=== PATIENT | female | born 1945 | race Caucasian/White ===

== ENCOUNTER 2017-02-12 09:43 | Emergency (ER) | payer OTHER ==
[~2017-02-12] VITALS: Ht 157.5 cm; Wt 64.4 kg
[~2017-02-12 09:43] MED LIST: CEPACOL SORE TH1 LO4 MM; CLA10 PO; CLARITIN10 MG PO; COL100 PO; COZ50 PO; COZAAR50 MG PO; FERROUS SULFAT325 M2 PO; GOOD SENSE ASPI81 M3 PO; LEVAQUIN750 MG PO; LEVOTHYROXIN0.025 M2 PO; MAC100 PO; MEDDP PO; METFORMIN ER500 M1 PO; METFORMIN HCL500 MG PO; METOPROLOL25 MG PO; MUCINEX600 MG PO; NAPROSYN375 MG PO; OMEPRAZOLE20 M2 PO; PROAIR HFA0.09 MG/A1; ROBITUSSIN COU118 ML PO; SIMVASTATIN40 M1 PO; SIMVASTATIN40 MG PO; SING10 PO; TRE400 PO; TYL325 PO; VITAMIN C500 M4 PO; ZOCOR40 MG PO
[2017-02-12 11:33] VITALS: BP 140/54
== END 2017-02-12 11:47 | disposition home or self-care (01) ==
LOC: ED 09:43
DX: J98.01 Acute bronchospasm (principal); I10 Essential (primary) hypertension; E11.9 Type 2 diabetes mellitus without complications; E78.00 Pure hypercholesterolemia, unspecified; M54.9 Dorsalgia, unspecified; R07.89 Other chest pain
CPT/HCPCS: J7512; J7613; J7644

== ENCOUNTER 2017-07-15 12:58 | Emergency (ER) | payer OTHER ==
[~2017-07-15] VITALS: Ht 149.9 cm; Wt 64.4 kg
[2017-07-15 13:24] VITALS: Ht 149.9 cm; Wt 64.4 kg
[2017-07-15 15:06] LABS: BASOPHIL % 0.2 % (0-2); PLATELET COUNT 312 x10^3mcL (130-400)
[2017-07-15 15:08] LABS: RED CELL DISTRIBUTION WIDTH 16.3 % (11.5-14.5)
[2017-07-15 15:13] LABS: CALCIUM 9.3 mg/dL (8.5-10.1); CARBON DIOXIDE 19.9 mmol/L (21-32); CHLORIDE SERUM 107 mmol/L (98-107); CREATININE SERUM 1.8 mg/dL (0.6-1.0); GLUCOSE SERUM 93 mg/dL (74-106); POTASSIUM SERUM 4.6 mmol/L (3.5-5.1); SODIUM SERUM 141 mmol/L (136-145)
[2017-07-15 15:30] LABS: ALKALINE PHOSPHATASE 96 U/L (46-116); ALT/SGPT 21 U/L (14-59); AST/SGOT 15 U/L (15-37); BILIRUBIN TOTAL 0.31 mg/dL (0.20-1.00); LIPASE 593 IU/L (73-393); TOTAL PROTEIN, SERUM 8.2 g/dL (6.4-8.2)
[2017-07-15 16:03] VITALS: BP 140/66
== END 2017-07-15 16:03 | disposition home or self-care (01) ==
LOC: ED 12:58
PROVIDERS: Emergency Medicine
DX: E11.22 Type 2 diabetes mellitus with diabetic chronic kidney disease (principal); I12.9 Hypertensive chronic kidney disease with stage 1 through stage 4 chronic kidney disease, or unspecified chronic kidney disease; N18.9 Chronic kidney disease, unspecified; E03.9 Hypothyroidism, unspecified
CPT/HCPCS: J2405; Q0092

== ENCOUNTER 2017-10-21 07:43 | Emergency (ER) | payer OTHER ==
[~2017-10-21] VITALS: Ht 127 cm; Wt 64.4 kg
[2017-10-21 07:56] VITALS: Ht 127 cm; Wt 64.4 kg
[2017-10-21 08:41] LABS: BASOPHIL % 0.6 % (0-2); PLATELET COUNT 271 x10^3mcL (130-400)
[2017-10-21 08:53] LABS: CALCIUM 8.9 mg/dL (8.5-10.1); CARBON DIOXIDE 22.1 mmol/L (21-32); CHLORIDE SERUM 110 mmol/L (98-107); CREATININE SERUM 1.9 mg/dL (0.6-1.0); GLUCOSE SERUM 91 mg/dL (74-106); POTASSIUM SERUM 4.7 mmol/L (3.5-5.1); SODIUM SERUM 144 mmol/L (136-145)
[2017-10-21 08:55] LABS: ALBUMIN 3.7 g/dL (3.4-5.0); ALKALINE PHOSPHATASE 85 U/L (46-116); ALT/SGPT 18 U/L (14-59); AST/SGOT 11 U/L (15-37); LIPASE 316 IU/L (73-393); TOTAL PROTEIN, SERUM 7.2 g/dL (6.4-8.2)
[2017-10-21 09:02] LABS: RED CELL DISTRIBUTION WIDTH 15.6 % (11.5-14.5)
[2017-10-21 09:54] VITALS: BP 119/66
== END 2017-10-21 09:55 | disposition home or self-care (01) ==
LOC: ED 07:43
PROVIDERS: Emergency Medicine
DX: J45.901 Unspecified asthma with (acute) exacerbation (principal); D64.9 Anemia, unspecified; N28.9 Disorder of kidney and ureter, unspecified; I10 Essential (primary) hypertension; E78.00 Pure hypercholesterolemia, unspecified; Z86.39 Personal history of other endocrine, nutritional and metabolic disease
CPT/HCPCS: 36415; 83880; J7512; J7613; J7644; Q0092

== ENCOUNTER 2019-01-20 23:18 | Emergency (ER) | payer OTHER ==
[~2019-01-20] VITALS: Ht 157.5 cm; Wt 56.7 kg
[2019-01-20 23:32] VITALS: Ht 157.5 cm; Wt 56.7 kg
[2019-01-21 01:43] LABS: BASOPHIL % 0.6 % (0-2); PLATELET COUNT 276 x10^3mcL (130-400)
[2019-01-21 01:46] LABS: RED CELL DISTRIBUTION WIDTH 16.5 % (11.5-14.5)
[2019-01-21 02:10] LABS: ALBUMIN 3.8 g/dL (3.4-5.0); ALKALINE PHOSPHATASE 109 U/L (46-116); ALT/SGPT 24 U/L (14-59); AST/SGOT 17 U/L (15-37); BILIRUBIN TOTAL 0.3 mg/dL (0.20-1.00); CALCIUM 8.6 mg/dL (8.5-10.1); CARBON DIOXIDE 15.9 mmol/L (21-32); CREATININE SERUM 2.2 mg/dL (0.6-1.0); GLUCOSE SERUM 102 mg/dL (74-106); TOTAL PROTEIN, SERUM 7.7 g/dL (6.4-8.2)
[2019-01-21 02:18] LABS: POTASSIUM SERUM 4.8 mmol/L (3.5-5.1); SODIUM SERUM 141 mmol/L (136-145)
[2019-01-21 02:19] LABS: CHLORIDE SERUM 109 mmol/L (98-107)
[2019-01-21 06:00] VITALS: BP 137/67
== END 2019-01-21 06:00 | disposition home or self-care (01) ==
LOC: ED 23:18
PROVIDERS: Emergency Medicine
DX: J06.9 Acute upper respiratory infection, unspecified (principal); J45.909 Unspecified asthma, uncomplicated; I10 Essential (primary) hypertension; E78.00 Pure hypercholesterolemia, unspecified; E03.9 Hypothyroidism, unspecified; M19.90 Unspecified osteoarthritis, unspecified site
CPT/HCPCS: 36415; J7613

== ENCOUNTER 2019-02-20 00:44 | Emergency (ER) | payer OTHER ==
[~2019-02-20] VITALS: Ht 157.5 cm; Wt 65.8 kg
[2019-02-20 00:51] VITALS: Ht 157.5 cm; Wt 65.8 kg
[2019-02-20 01:49] LABS: BASOPHIL % 0.6 % (0-2)
[2019-02-20 01:55] LABS: PLATELET COUNT 244 x10^3mcL (130-400); RED CELL DISTRIBUTION WIDTH 15.4 % (11.5-14.5)
[2019-02-20 02:48] LABS: UA SPECIFIC GRAVITY 1.015 (1.005-1.035); microscopic required? YES; urine erythrocyte NEGATIVE (NEGATIVE)
[2019-02-20 02:53] LABS: CARBON DIOXIDE 21.9 mmol/L (21-32); CHLORIDE SERUM 110 mmol/L (98-107); POTASSIUM SERUM 4.3 mmol/L (3.5-5.1); SODIUM SERUM 143 mmol/L (136-145)
[2019-02-20 02:54] LABS: GLUCOSE SERUM 92 mg/dL (74-106)
[2019-02-20 02:57] LABS: ALBUMIN 3.8 g/dL (3.4-5.0); ALT/SGPT 14 U/L (14-59); AST/SGOT 14 U/L (15-37); CALCIUM 8.7 mg/dL (8.5-10.1)
[2019-02-20 02:58] LABS: ALKALINE PHOSPHATASE 77 U/L (46-116); BILIRUBIN TOTAL 0.23 mg/dL (0.20-1.00); TOTAL PROTEIN, SERUM 7.4 g/dL (6.4-8.2)
[2019-02-20 03:57] VITALS: BP 118/65
== END 2019-02-20 03:57 | disposition home or self-care (01) ==
LOC: ED 00:44
PROVIDERS: Emergency Medicine
DX: M54.9 Dorsalgia, unspecified (principal); R10.13 Epigastric pain; R11.0 Nausea; J45.909 Unspecified asthma, uncomplicated; I10 Essential (primary) hypertension; E78.00 Pure hypercholesterolemia, unspecified; E03.9 Hypothyroidism, unspecified; Z98.890 Other specified postprocedural states
CPT/HCPCS: J1885; J2405

== ENCOUNTER 2019-06-29 16:49 | Emergency (ER) | payer OTHER ==
[~2019-06-29] VITALS: Ht 162.6 cm; Wt 68.0 kg
[2019-06-29 17:04] VITALS: Ht 162.6 cm; Wt 68.0 kg
[2019-06-29 18:07] LABS: PLATELET COUNT 267 x10^3mcL (130-400)
[2019-06-29 18:11] LABS: BASOPHIL % 2.4 % (0-2)
[2019-06-29 18:23] LABS: CALCIUM 9.8 mg/dL (8.5-10.1); CARBON DIOXIDE 21.3 mmol/L (21-32); CHLORIDE SERUM 109 mmol/L (98-107); CREATININE SERUM 1.7 mg/dL (0.6-1.0); GLUCOSE SERUM 93 mg/dL (74-106); POTASSIUM SERUM 5.4 mmol/L (3.5-5.1); SODIUM SERUM 143 mmol/L (136-145)
[2019-06-29 18:28] LABS: ALBUMIN 3.8 g/dL (3.4-5.0); ALKALINE PHOSPHATASE 70 U/L (46-116); ALT/SGPT 21 U/L (14-59); AST/SGOT 14 U/L (15-37); BILIRUBIN TOTAL 0.2 mg/dL (0.20-1.00); TOTAL PROTEIN, SERUM 7.2 g/dL (6.4-8.2)
[2019-06-29 20:10] VITALS: BP 130/66
== END 2019-06-29 20:10 | disposition home or self-care (01) ==
LOC: ED 16:49
PROVIDERS: Emergency Medicine
DX: R42 Dizziness and giddiness (principal); R11.2 Nausea with vomiting, unspecified; I10 Essential (primary) hypertension; J45.909 Unspecified asthma, uncomplicated; M19.90 Unspecified osteoarthritis, unspecified site; E78.00 Pure hypercholesterolemia, unspecified; E03.9 Hypothyroidism, unspecified
CPT/HCPCS: 36415; J8597

== ENCOUNTER 2019-10-31 17:55 | Emergency (ER) | payer OTHER, SELFPAY ==
[~2019-10-31] VITALS: Ht 147.3 cm; Wt 63.5 kg
[2019-10-31 17:56] VITALS: Ht 147.3 cm; Wt 63.5 kg
[2019-10-31 20:48] VITALS: BP 134/68
== END 2019-10-31 20:48 | disposition home or self-care (01) ==
LOC: ED 17:55
DX: J40 Bronchitis, not specified as acute or chronic (principal); N39.0 Urinary tract infection, site not specified; Z20.828 Contact with and (suspected) exposure to other viral communicable diseases
CPT/HCPCS: 87804; Q0092; U0003-CS

== ENCOUNTER 2020-01-11 11:30 | Emergency (ER) | payer OTHER ==
[~2020-01-11] VITALS: Ht 162.6 cm; Wt 60.3 kg
[~2020-01-11 11:30] MED LIST changes: +BENZONATATE200 MG PO; +LEVAQUIN500 M1 PO; +MEDI-FIRST ASP325 MG PO; +MEDROL DOSEPAK4 MG PO; +ZITHROMAX TRI-500 MG PO
[2020-01-11 11:56] VITALS: Ht 162.6 cm; Wt 60.3 kg
[2020-01-11 14:33] LABS: BASOPHIL % 0.5 % (0-2); PLATELET COUNT 453 x10^3mcL (130-400)
[2020-01-11 14:49] LABS: CALCIUM 9.2 mg/dL (8.5-10.1); CARBON DIOXIDE 23.7 mmol/L (21-32); CHLORIDE SERUM 103 mmol/L (98-107); CREATININE SERUM 1.6 mg/dL (0.6-1.0); GLUCOSE SERUM 79 mg/dL (74-106); POTASSIUM SERUM 4.2 mmol/L (3.5-5.1); SODIUM SERUM 139 mmol/L (136-145)
[2020-01-11 14:53] LABS: ALKALINE PHOSPHATASE 64 U/L (46-116); ALT/SGPT 18 U/L (14-59); AST/SGOT 18 U/L (15-37); BILIRUBIN TOTAL 0.3 mg/dL (0.20-1.00); TOTAL PROTEIN, SERUM 7.6 g/dL (6.4-8.2); URIC ACID 9.6 mg/dL (2.6-6.0)
[2020-01-11 14:55] LABS: ALBUMIN 3.1 g/dL (3.4-5.0)
[2020-01-11 15:20] VITALS: BP 143/64
== END 2020-01-11 15:20 | disposition home or self-care (01) ==
LOC: ED 11:30
PROVIDERS: Emergency Medicine
DX: M10.031 Idiopathic gout, right wrist (principal)
CPT/HCPCS: J7512

== ENCOUNTER 2020-03-12 12:52 | Emergency (ER) | payer OTHER ==
[~2020-03-12] VITALS: Ht 152.4 cm; Wt 60.3 kg
[2020-03-12 13:07] VITALS: BP 152/128; Ht 152.4 cm; Wt 60.3 kg
== END 2020-03-12 17:10 | disposition home or self-care (01) ==
LOC: ED 12:52
DX: M1A.0711 Idiopathic chronic gout, right ankle and foot, with tophus (tophi) (principal); J45.909 Unspecified asthma, uncomplicated; I10 Essential (primary) hypertension; E78.00 Pure hypercholesterolemia, unspecified; E03.9 Hypothyroidism, unspecified